=== PATIENT | female | born 1990 | race Caucasian/White ===

== ENCOUNTER → 2017-12-27 14:21 | Outpatient (CLI) | payer OTHER, SELFPAY ==
[2017-12-27 17:11] LABS: Urine N gonorrhoeae NOT DETECTED
[2017-12-27 17:24] LABS: Urine Chlamydia NOT DETECTED
== END ==
PROVIDERS: PCP Physician Assistant; Visit Provider Specialist
DX: Z34.81 Encounter for supervision of other normal pregnancy, first trimester (principal); Z3A.13 13 weeks gestation of pregnancy
CPT/HCPCS: 87491; 87591

== ENCOUNTER 2018-01-02 15:59 | Emergency (ER) | payer OTHER, SELFPAY ==
[2018-01-02 16:41] VITALS: BP 105/75; PULSE 90; RESP 16; TEMP 37; O2SAT 99; BMI 19.0
--- NOTE | 2018-01-02 17:19 | ED.NAVMDI ---
HPI - Nausea/Vomiting/Diarrhea <JAN Sainz - Last Filed: 01/02/18 22:57> General Chief complaint: Nausea/Vomiting/Diarrhea Stated complaint: VOMITING TODAY, 14 WKS Time Seen by Provider: 01/02/18 17:19 History of Present Illness HPI Narrative: 27-year-old female currently 14 weeks 1 here for nausea vomiting that started earlier today. She states she has had multiple episodes having nausea vomiting during this . She states that she is prescribed Zofran to help with this and states that did not help her today. Decreased p.o. intake due to the nausea vomiting. Multiple episodes of vomiting today. She denies any abdominal pain. She denies any urinary symptoms. No fevers no chills. She denies any vaginal discharge or bleeding. No other concerns or complaints. MD complaint: vomiting Related Data Home Medications Medication Instructions Recorded Confirmed Lactobacillus acidophilus #0 10/13/17 lysine #0 10/13/17 omega 1-vvt-ubi-fish oil [Fish Oil] #0 10/13/17 Previous Rx's Medication Instructions Recorded valacyclovir [Valtrex] 2 tab PO BID #4 tab 10/13/17 ondansetron 4 mg disintegrating 4 mg PO Q6H PRN #30 tab 12/07/17 tablet Allergies Allergy/AdvReac Type Severity Reaction Status Date / Time No Known Allergies Allergy Verified 01/02/18 17:49 Review of Systems <JAN Sainz - Last Filed: 01/02/18 22:57> Constitutional Denies chills, Denies fever(s), Denies lethargy and Denies weakness Eyes Denies change in vision, Denies eye discharge, Denies irritation and Denies loss of vision ENT Ears, Nose, Mouth, and Throat: Denies change in voice, Denies neck pain and Denies sore throat Cardiovascular Denies chest pain, Denies irregular heart rhythm, Denies lightheadedness, Denies palpitations, Denies dyspnea, Denies dyspnea on exertion and Denies orthopnea Respiratory Denies cough, Denies dyspnea, Denies dyspnea on exertion and Denies wheezing Gastrointestinal Gastrointestinal: Reports vomiting Genitourinary Denies hematuria, Denies flank pain, Denies urinary incontinence and Denies urinary urgency Musculoskeletal Denies neck pain Integumentary/Breasts Denies pruritus, Denies erythema, Denies rash and Denies wounds Neurologic Denies confusion, Denies loss of vision and Denies weakness Psychiatric Denies anxiety, Denies confusion, Denies depression, Denies homicidal ideation and Denies suicidal ideation Endocrine Denies palpitations Hematologic/Lymphatic Denies easy bruising Allergic/Immunologic Denies wheezing Exam <JAN Sainz - Last Filed: 01/02/18 22:57> Initial Vital Signs Initial Vital Signs: Vital Signs Temperature 98.6 F 01/02/18 16:41 Pulse Rate 90 01/02/18 16:41 Respiratory Rate 16 01/02/18 16:41 Blood Pressure 105/75 01/02/18 16:41 Pulse Oximetry 99 01/02/18 16:41 Const General: cooperative and well developed Nutritional Appearance: well nourished Orientation: alert, awake, oriented x3 and not confused HENMT Mouth: oral mucosae normal and moist mucous membranes Eyes General: appearance normal, both eyes and all related structures Eyelids: eyelids normal Conjunctivae: conjunctivae normal Sclera: sclerae normal Pupils: PERRL EOM: EOM intact bilaterally Resp Effort & Inspection: normal respiratory effort, able to speak in complete sentences, no respiratory distress and no use of accessory muscles Auscultation: clear to auscultation bilaterally, no rales, no rhonchi and no wheezes Cardio Rate: regular rate Rhythm: regular rhythm Heart Sounds: no click, no gallops, no murmurs and no rubs GI Inspection: non-distended Palpation: soft, no hepatosplenomegaly, No guarding, No pulsatile mass and No tender Auscultation: normal bowel sounds General: No CVA tenderness Skin General: no rashes or lesions noted, No jaundice and No petechiae Extrem General: full ROM, no clubbing, cyanosis or edema, no pedal edema and no calf tenderness <Eros Smith MD - Last Filed: 01/03/18 02:12> Initial Vital Signs Initial Vital Signs: Vital Signs Temperature 98.6 F 01/02/18 16:41 Pulse Rate 90 01/02/18 16:41 Respiratory Rate 16 01/02/18 16:41 Blood Pressure 105/75 01/02/18 16:41 Pulse Oximetry 99 01/02/18 16:41 Course <JAN Sainz - Last Filed: 01/02/18 22:57> Orders Ordered: Discontinued Medications Sodium Chloride (Normal Saline 0.9%) 1,000 mls @ 1,000 mls/hr IV BOLUS ONE Stop: 01/02/18 18:33 Last Infusion: 01/02/18 19:04 Dose: 0 mls/hr Admin: 01/02/18 17:42 Dose: 1,000 mls/hr Prochlorperazine (Compazine) 10 mg IV NOW ONE Stop: 01/02/18 17:35 Last Admin: 01/02/18 17:42 Dose: 10 mg Vital Signs - 8 hr 01/02/18 19:45 Pulse Rate 85 Respiratory Rate 14 Blood Pressure 105/70 Pulse Oximetry 99 <Eros Smith MD - Last Filed: 01/03/18 02:12> Orders Ordered: Discontinued Medications Sodium Chloride (Normal Saline 0.9%) 1,000 mls @ 1,000 mls/hr IV BOLUS ONE Stop: 01/02/18 18:33 Last Infusion: 01/02/18 19:04 Dose: 0 mls/hr Admin: 01/02/18 17:42 Dose: 1,000 mls/hr Prochlorperazine (Compazine) 10 mg IV NOW ONE Stop: 01/02/18 17:35 Last Admin: 01/02/18 17:42 Dose: 10 mg Vital Signs - 8 hr 01/02/18 19:45 Pulse Rate 85 Respiratory Rate 14 Blood Pressure 105/70 Pulse Oximetry 99 MDM - Nausea/Vomiting/Diarrhea <JAN Sainz - Last Filed: 01/02/18 22:57> Lab Data Result diagrams: 01/02/18 17:07 01/02/18 17:07 Lab Results 01/02/18 01/02/18 Range/Units 17:07 17:07 WBC 9.3 (4.5-11.0) X10^3/uL RBC 4.07 (4.0-5.2) X10^6/uL Hgb 12.7 (12.0-16.0) g/dL Hct 36.0 (36-46) % MCV 88.6 (80-100) fL MCH 31.2 (26-34) PG MCHC 35.2 (30-36) % RDW 12.8 (11.6-14.8) % Plt Count 193 (150-400) X10^3/uL Neut % (Auto) 79.1 H (50-75) % Lymph % (Auto) 15.2 L (25-40) % Clarke % (Auto) 5.2 (3-14) % Eos % (Auto) 0.2 L (2-4) % Baso % (Auto) 0.3 (0-2) % Neut # (Auto) 7300 H (4217-1328) /uL Sodium 138 (137-145) mmol/L Potassium 4.0 (3.4-5.1) mmol/L Chloride 103 (98-107) mmol/L Carbon Dioxide 26 (22-32) mmol/L BUN 9 (7-17) mg/dL Creatinine 0.50 L (0.52-1.04) mg/dL Estimated GFR > 60.0 (>60) mL/min BUN/Creatinine Ratio 18.0 (6-22) Glucose 84 (70-100) mg/dL Calcium 9.4 (8.4-10.2) mg/dL Total Bilirubin 0.4 (0.2-1.3) mg/dL AST 26 (14-36) IU/L ALT 25 (9-52) IU/L Alkaline Phosphatase 59 (38-126) U/L Total Protein 7.9 (6.3-8.2) g/dL Albumin 4.2 (3.5-5.0) g/dL Globulin 3.7 (1.7-4.1) g/dL Albumin/Globulin Ratio 1.1 (1.0-2.8) MDM Narrative Medical decision making narrative: CBC and Chem panel were obtained were unremarkable. Patient was given fluids and Compazine in the emergency room which patient states felt much better afterwards and desires to go home. Urine POC was negative for urinary tract infection. Will have patient continue using Zofran as prescribed for her nausea vomiting. Plenty of fluids. Slowly advance diet as tolerated. Follow up with OBGYN in the next couple days for re-evaluation. For any worsening symptoms return to the emergency room. <Eros Smith MD - Last Filed: 01/03/18 02:12> Lab Data Lab Results 01/02/18 01/02/18 Range/Units 17:07 17:07 WBC 9.3 (4.5-11.0) X10^3/uL RBC 4.07 (4.0-5.2) X10^6/uL Hgb 12.7 (12.0-16.0) g/dL Hct 36.0 (36-46) % MCV 88.6 (80-100) fL MCH 31.2 (26-34) PG MCHC 35.2 (30-36) % RDW 12.8 (11.6-14.8) % Plt Count 193 (150-400) X10^3/uL Neut % (Auto) 79.1 H (50-75) % Lymph % (Auto) 15.2 L (25-40) % Clarke % (Auto) 5.2 (3-14) % Eos % (Auto) 0.2 L (2-4) % Baso % (Auto) 0.3 (0-2) % Neut # (Auto) 7300 H (5450-8440) /uL Sodium 138 (137-145) mmol/L Potassium 4.0 (3.4-5.1) mmol/L Chloride 103 (98-107) mmol/L Carbon Dioxide 26 (22-32) mmol/L BUN 9 (7-17) mg/dL Creatinine 0.50 L (0.52-1.04) mg/dL Estimated GFR > 60.0 (>60) mL/min BUN/Creatinine Ratio 18.0 (6-22) Glucose 84 (70-100) mg/dL Calcium 9.4 (8.4-10.2) mg/dL Total Bilirubin 0.4 (0.2-1.3) mg/dL AST 26 (14-36) IU/L ALT 25 (9-52) IU/L Alkaline Phosphatase 59 (38-126) U/L Total Protein 7.9 (6.3-8.2) g/dL Albumin 4.2 (3.5-5.0) g/dL Globulin 3.7 (1.7-4.1) g/dL Albumin/Globulin Ratio 1.1 (1.0-2.8) Discharge Plan Departure Patient Disposition: Home, Self-Care Clinical Impression: Nausea and vomiting during Discharge Date/Time: 01/02/18 19:45 Interventions: ED Discharge Assessment Last Done: 01/02/18 19:45 Instructions: DI for Hyperemesis Gravidarum Activity Restrictions/Additional Instructions: Laboratory results were unremarkable today. Signs and symptoms presents as nausea vomiting secondary to the . Continue using Zofran as prescribed. Plenty of fluids. Slowly advance diet as tolerated. Follow up with OBGYN in the next couple of days for re-evaluation. For any worsening symptoms return to the emergency room Prescriptions: No Action lysine 500 MG tablet Qty: 0 RF: 0 Lactobacillus acidophilus 1 EACH capsule Qty: 0 RF: 0 omega 1-foy-xad-fish oil [Fish Oil] 1,000 MG capsule Qty: 0 RF: 0 valacyclovir [Valtrex] 1,000 MG tablet 2 tab PO BID Qty: 4 RF: 2 ondansetron [Zofran ODT] 4 mg tablet,disintegrating 4 mg PO Q6H PRN (Reason: nausea and vomiting) Qty: 30 RF: 2 Referrals: Zara Casarez PA-C [Primary Care Provider] -
--- NOTE | 2018-01-02 17:30 | PC.NURSE ---
pt reports 14 weeks preg, 1 week of nausea/vomiting, unable to keep fluids down, emesis x10 today, denies abd pain/bleeding/diarrhea/fever/dysuria or other sx, FHT 140 at time of exam completed by Flavia VENTURA
[2018-01-02 17:42] VITALS: BP 105/75; PULSE 90
[2018-01-02] MEDS: SODIUM CHLORIDE 0.9% 1,000 ML 1000 ML IV (17:42)
[2018-01-02] MEDS: PROCHLORPERAZINE 10 MG/2 ML VIAL IV (17:42)
[2018-01-02 17:44] LABS: Add Manual Diff / Slide Review NO; Basophils Percent Auto 0.3 % (0-2); Eosinophils Percent Auto 0.2 % (2-4); Hemoglobin 12.7 g/dL (12.0-16.0); Lymphocytes Percent Auto 15.2 % (25-40); Mean Corpuscular HGB Conc 35.2 % (30-36); Mean Corpuscular Hemoglobin 31.2 PG (26-34); Mean Corpuscular Volume 88.6 fL (80-100); Monocytes Percent Auto 5.2 % (3-14); Neutrophils Absolute Auto 7300 /uL (3000-5900); Neutrophils Percent Auto 79.1 % (50-75); Platelet Count 193 X10^3/uL (150-400); Red Blood Cell Count 4.07 X10^6/uL (4.0-5.2); Red Cell Distribution Width 12.8 % (11.6-14.8); White Blood Cell Count 9.3 X10^3/uL (4.5-11.0)
[2018-01-02 17:56] VITALS: BP 109/72; PULSE 101; RESP 16; TEMP 36.7; O2SAT 100
[2018-01-02 18:06] LABS: Alanine Aminotransferase 25 IU/L (9-52); Albumin 4.2 g/dL (3.5-5.0); Albumin Globulin Ratio 1.1 (1.0-2.8); Alkaline Phosphatase 59 U/L (38-126); Aspartate Aminotransferase 26 IU/L (14-36); Bilirubin Total 0.4 mg/dL (0.2-1.3); Blood Urea Nitrogen 9 mg/dL (7-17); Calcium 9.4 mg/dL (8.4-10.2); Carbon Dioxide 26 mmol/L (22-32); Chloride 103 mmol/L (98-107); Estimated Glomerular Filt Rate > 60.0 mL/min (>60); Globulin 3.7 g/dL (1.7-4.1); Glucose 84 mg/dL (70-100); HEMOLYSIS < 15 (0-50); Sodium 138 mmol/L (137-145); Total Protein 7.9 g/dL (6.3-8.2)
[2018-01-02 19:45] VITALS: BP 105/70; PULSE 85; RESP 14; O2SAT 99
== END 2018-01-02 19:45 | disposition home or self-care (01) ==
PROVIDERS: Emergency Provider Nurse Practitioner Family; PCP Physician Assistant
DX: O21.9 Vomiting of pregnancy, unspecified (principal)
CPT/HCPCS: 80053; 81003; 85025; 96361; 96374; 99283; 99284; J0780

== ENCOUNTER → 2018-01-25 11:15 | Outpatient (CLI) | payer OTHER, SELFPAY ==
[2018-01-31 13:46] LABS: AFP, Serum 36.6 ng/mL; Cigarette Smoker N; Donated Egg NOT GIVEN; Donor Egg Age NOT GIVEN; Estriol, Free 0.86 ng/mL; Maternal Ethnicity Caucasian; Maternal Weight 115 lbs; Number of Fetuses 1; Previous Pregnancy Down Syndro NOT GIVEN; hCG, Serum 95.7 IU/mL
[2018-02-01 14:39] LABS: Inhibin A, Dimeric 318 pg/mL
[2018-03-02 15:58] LABS: hCG, MoM 2.33
== END ==
PROVIDERS: PCP Physician Assistant; Visit Provider Specialist
DX: Z3A.17 17 weeks gestation of pregnancy (principal)
CPT/HCPCS: 36415; 82105; 82677; 84702; 86336

== ENCOUNTER → 2018-02-13 09:50 | Outpatient (CLI) | payer OTHER, SELFPAY ==
--- NOTE | 2018-02-13 09:51 | DI.US.S_ITS ---
PROCEDURE: US OB >= 14 WEEKS FETUS INDICATIONS: 20 WEEK ANATOMY SCREEN OUTSIDE/PRIOR DATING DATA: Last menstrual period (LMP): 09/24/2017. LMP-based estimated date of delivery (CHRISTOPHER): 07/01/2018. First dating scan (date and location): 11/10/2017. Estimated date of delivery (CHRISTOPHER) from first dating scan: 07/08/2018. TECHNIQUE: Real-time scanning was performed of the fetus, with image documentation and biometric measurements. Endovaginal scanning: Not required COMPARISON: [facility], , OB >= 14 WEEKS FETUS, 01/25/2018, 10:52. FINDINGS: General: A single living intrauterine gestation is present. Presentation: Vertex. Placenta: Placental position is anterior, without previa. Amniotic fluid index: 13.0 cm, normal range is 5-24 cm. heart rate: 143 beats per minute. Maternal cervical canal: 3.5 cm long. Normal lower limit is 2.5 cm. biometrics: Biparietal diameter: 19 weeks 2 days Head circumference: 19 weeks 3 days Abdominal circumference: 19 weeks 3 days Femur length: 18 weeks 6 days Estimated gestational age from initial scan: 19 weeks 2 days Composite gestational age from present scan: 19 weeks 2 days, normal growth Estimated weight and percentile: 279 g at the 40th percentile Measurement variability for biometric dating: +/- 7 days from 14 weeks to 15 weeks 6 days gestation, +/- 10 days from 16 weeks to 21 weeks 6 days gestation, +/- 2 weeks from 22 weeks to 27 weeks 6 days gestation, +/- 3 weeks for 28 weeks gestation or later. weight reference: 4500 g or EFW >90/95% is considered macrosomia or large for gestational age. EFW <10% is small for gestational age. EFW 5% or less is considered intra-uterine growth restriction. Anatomic survey: Neuro: Ventricles are non-dilated at less than 10 mm. Cisterna magna is normal at 3-11 mm. Cerebellum is normal in size and morphology. Nuchal skin fold: Normal at less than 6 mm between 14-21 weeks gestational age. Face: Nose and lips, facial profile are normal. Spine: No evidence for spina bifida. Heart: 4-chambered heart is present, with normal ventricular outflow tracts. Diaphragm: Diaphragm is intact. Stomach: Left-sided stomach is present. Kidneys: No hydronephrosis. Normal is less than 5 mm in 2nd trimester, less than 7 mm in 3rd trimester. Cord: 3-vessel cord has orthotopic insertion. Bladder: Normal in size. Extremities: All 4 extremities identified. IMPRESSION: Single, live intrauterine gestation in Vertex lie showing composite gestational age of 19 weeks 2 days, normal growth and normal anatomy. Dictated by: Terry Mayfield M.D. on 02/13/2018 at 10:59 Approved by: Terry Mayfield M.D. on 02/13/2018 at 11:01
== END ==
PROVIDERS: PCP Physician Assistant; Visit Provider Specialist
DX: Z36.89 Encounter for other specified antenatal screening (principal); Z3A.19 19 weeks gestation of pregnancy
CPT/HCPCS: 76811

== ENCOUNTER 2018-03-09 09:09 | Observation (INO) | payer OTHER, SELFPAY ==
--- NOTE | 2018-03-09 10:51 | PM.OBTRLD ---
Visit Information Visit Information Date of evaluation: 03/09/18 Primary OB Provider: Esperanza Benitez Comments/Additional reasons for admission: r/o rupture membranes, PTL Vital Signs Vital Signs: Blood pressure 94/62, pulse of 96 PFSH Family History Grandfather Diabetes mellitus Heart disease Skin cancer Grandmother Mental health problem Stroke Grandfather Pancreatic cancer Grandmother Breast cancer Social History Smoking Status: Never smoker Exam Narrative Exam Narrative: heart tones reassuring for 22 weeks. No abdominal pain. No contractions seen on monitor. No vaginal bleeding or discharge. Evaluation Evaluation Contraction Frequency (minutes): 0 Diagnosis, Plan/Disposition Final Diagnosis (1) Vaginal discharge: Current Visit: No Status: Acute (2) 22 weeks gestation of : Current Visit: No Status: Acute (3) Back pain: Current Visit: No Status: Acute Plan/Disposition Plan: Patient reassured that there is no evidence of labor or rupture membranes. She was discharged home to keep her routine OB appointment
== END 2018-03-09 10:48 | disposition home or self-care (01) ==
PROVIDERS: Admitting Provider Specialist; PCP Physician Assistant; Visit Provider Specialist
DX: Z34.92 Encounter for supervision of normal pregnancy, unspecified, second trimester (principal); M54.9 Dorsalgia, unspecified; N89.8 Other specified noninflammatory disorders of vagina; Z3A.22 22 weeks gestation of pregnancy
CPT/HCPCS: 59025; 84112; G0378; G0379

== ENCOUNTER → 2018-03-22 09:18 | Outpatient (CLI) | payer OTHER, SELFPAY ==
[2018-03-22 11:16] LABS: Hematocrit 32.6 % (36-46); Hemoglobin 11.4 g/dL (12.0-16.0)
[2018-03-22 11:33] LABS: GTT (PREG) 1 Hour PP 50gm Dose 72 mg/dL (76-139)
== END ==
PROVIDERS: PCP Physician Assistant; Visit Provider Specialist
DX: Z34.02 Encounter for supervision of normal first pregnancy, second trimester (principal); Z3A.24 24 weeks gestation of pregnancy
CPT/HCPCS: 36415; 82950; 85014; 85018

== ENCOUNTER → 2018-06-15 10:20 | Outpatient (CLI) | payer OTHER, SELFPAY ==
[2018-06-16 10:47] LABS: Strep Grp B PCR NEG for Grp B Strep
== END ==
PROVIDERS: PCP Physician Assistant; Visit Provider Specialist
DX: Z3A.36 36 weeks gestation of pregnancy (principal)
CPT/HCPCS: 87653

== ENCOUNTER 2018-06-20 13:27 | Outpatient (CLI) | payer OTHER, SELFPAY ==
--- NOTE | 2018-06-20 14:06 | PM.OBTRLD ---
Visit Information Visit Information Date of evaluation: 06/20/18 Primary OB Provider: Esperanza Benitez Reason for Evaluation: Yes rupture of membranes Vital Signs Vital Signs: Blood pressure 116/75, pulse of 83 PFSH Family History Grandfather Diabetes mellitus Heart disease Skin cancer Grandmother Mental health problem Stroke Grandfather Pancreatic cancer Grandmother Breast cancer Social History Smoking Status: Never smoker Evaluation Evaluation Baseline heart rate: 130 Variability: Moderate (11-25) monitor accelerations: Present monitor decelerations: Absent Category of Tracing: I Non-invasive Membranes Rupture Test: negative Diagnosis, Plan/Disposition Final Diagnosis (1) 37 weeks gestation of : Current Visit: Yes Status: Acute (2) Vaginal discharge: Current Visit: No Status: Acute Plan/Disposition Plan: Patient is reassured no evidence of rupture membranes. Precautions will be reviewed with patient. Follow-up at her routine OB appointment.
== END 2018-06-20 14:30 | disposition home or self-care (01) ==
LOC: LABOR 14:00 → OB 06-21 08:26
PROVIDERS: PCP Physician Assistant; Visit Provider Specialist
DX: Z34.83 Encounter for supervision of other normal pregnancy, third trimester (principal); Z3A.37 37 weeks gestation of pregnancy; N89.8 Other specified noninflammatory disorders of vagina
CPT/HCPCS: 59025; 84112; G0378; G0379

== ENCOUNTER 2018-06-27 13:00 | Outpatient (RCR) | payer OTHER, SELFPAY ==
--- NOTE | 2018-06-14 14:19 | PT.OIE ---
Current Diagnoses Dorsalgia, unspecified (06/13/18) Past Medical History (Last Reviewed 01/02/18 @ 19:37 by JAN Sainz) Acne (Inactive ~2004) History of chickenpox (Inactive ~1992) Ovarian cyst (Inactive ~2006) Painful menstrual periods (Inactive ~2004) Past Surgical History (Last Reviewed 01/02/18 @ 19:37 by JAN Sainz) Hx of breast augmentation (Inactive) Provider Visit Care Team Role Provider Type Zara Casarez PA-C Primary Care Provider Advanced Roving Carrier Specialty: Medical Address: [address] [place] [address] Email: [email or web address] Esperanza Benitez MD Attending Provider Physician Specialty: [employer] Address: [address] [place] [address], [id number] Email: [email or web address] Physical Therapy Initial Evaluation PT-OP-A Visit Information Start: 06/14/18 11:49 Freq: Status: Active Protocol: Document 06/13/18 13:00 [facility] (Rec: 06/14/18 12:06 [facility] [email or web address]) Out-Patient Physical Therapy Visit Information Visit Information Visit Type Initial Evaluation Visit Start Time 13:00 Visit Stop Time 14:00 Total Visit Minutes 60 Visit Number 1 Number of TURKEY PINNER Visits 0 Evaluation Information Evaluation Date 06/13/18 PT-OP-B Current Condition Start: 06/14/18 11:49 Freq: Status: Active Protocol: Document 06/13/18 13:00 [facility] (Rec: 06/14/18 12:06 [facility] [email or web address]) Current Condition History of Current Condition Onset Date 1 month ago Current Complaints mid and low back pain rated 5- 7/10 History of Current Condition Lani is a 27 year old female who is 36 weeks with her first child. She has been experiencing a onset of both low back pain and right greater than left thoracic pain that began 1 month ago. She also reports she was very sick the first trimester of her and wasn't able to do her regular level of activity. 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 and is limiting her photography sessions PT-OP-C Subjective Start: 06/14/18 11:49 Freq: Status: Active Protocol: Document 06/13/18 13:59 [facility] (Rec: 06/14/18 14:18 [facility] [email or web address]) OP-PT Pain Assessment Pain Assessment Grid Paper Pain Assessment Grid Completed Yes Location right sided thoracic spine and bilateral low back Intensity 7 Scale Used Numeric (1 - 10) PT-OP-F Manual Assessment Start: 06/14/18 11:49 Freq: Status: Active Protocol: Document 06/13/18 13:59 [facility] (Rec: 06/14/18 14:18 [facility] [email or web address]) Manual Assessments Soft Tissue Assessment Soft Tissue Mobility Assessment paraspinal muscular tightness lumbar paraspinals and thoracic region, scapula paraspinals R>L Joint Mobility Assessment Joint Mobility Assessment hypomobility of T4-6 PT-OP-J Posture/Palpation/Skin Start: 06/14/18 11:49 Freq: Status: Active Protocol: Document 06/14/18 14:18 [facility] (Rec: 06/14/18 14:19 [facility] [email or web address]) Palpation Assessment Location Two Palpation Location lumbar paraspinals Palpation Findings Soft Tissue Tightness Spasm Muscle Guarding Tenderness right T4-6 Palpation Location thoracic spine T4-6 spinus process and transverse process Palpation Findings Spasm Muscle Guarding Trigger Point PT-OP-K Range of Motion Start: 06/14/18 11:49 Freq: Status: Active Protocol: Document 06/13/18 13:59 [facility] (Rec: 06/14/18 14:18 [facility] [email or web address]) Lumbar Spine Range of Motion Lumbar Spine Active Testing Position Standing Flexion 70 Extension 10 Rotation Left 80 Rotation Right 80 Lateral Flexion Left 50 Lateral Flexion Right 50 Comments limited in lumbar flexion due to parapspinal tightness, flexion feels good to Kelsay but extension is painful PT-OP-Q Treatments Start: 06/14/18 11:49 Freq: Status: Active Protocol: Document 06/13/18 13:59 [facility] (Rec: 06/14/18 14:18 [facility] [email or web address]) Therapeutic Exercises Other Exercises 3 Other Exercise Name 1/2 foam roll stretch horizontally and vertically Comments pt to use yoga mat for home use 2 Other Exercise Name child's pose Reps/Minutes hold 1-2 minutes 1 Other Exercise Name quadruped pelvic tilts, sidebends, thoracic rotation Reps/Minutes x 10 each Manual Therapy Treatment Soft Tissue Mobilization 1 Body Location prone on pillow release of the lumbar paraspinals Body Position prone on pillow Comments good tolerance for pillow and for STM PT-OP-T Assessment and Plan Start: 06/14/18 11:49 Freq: Status: Active Protocol: Document 06/13/18 13:59 [facility] (Rec: 06/14/18 14:18 [facility] [email or web address]) Physical Therapy Assessment Rehab Potential Rehabilitation Potential Excellent Evaluation Complexity Number of Personal Factors/Comorbidities 0 Number of Body Systems Impaired 1-2 Clinical Presentation at Evaluation Stable Impairments Impairments Activity Tolerance Pain Posture ROM Soft Tissue Mobility Other Impairments related stretch weakness of the lower abdominal muscles with tightness of the paraspinals Goals Three Impairment thoracic and lumbar pain rated 5-7/10 Short Term Goal (STG) Basilio is educated in stretches and exercises for to help reduce pain levels from 5-7/10 to 1-3/10 for the remainder of her STG Duration 5 weeks Two Impairment hypomobility of the upper thoracic spine Short Term Goal (STG) improve mobility of T4-6 to assist with thoracic extension and to reduce pain STG Duration 5 weeks One Impairment muscle spasm and tightness of the lumbar paraspinals Short Term Goal (STG) reduce muscle spasm and tightness of the lumbar paraspinals with manual therapy techniques and stretching program STG Duration 5 weeks Assessment Summary Assessment Basilio presents to physical therapy with signs and symptoms of lumbar spasm and thoracic R>L hypomobility. She is currently 36 weeks with no history of LBP. 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 She is is excellent physical shape and is doing primarily yoga and water exercises currently. She presents with over dominance of the lumbar paraspinal musculature and this combined with stretch weakness of the lower abdominal wall is placing strain on her low back. In her thoracic spine she is hypomobile from T4-6. I instructed her today in chest opening exercises to help improve thoracic extension and lumbar flexion exercises. She was educated on avoidance of lumbar extension at this time. Soft tissue work was performed over the lumbar paraspinals and Basilio tolerated this well. She is a good candidate for PT during the remainder of her to help reduce her pain levels. Physical Therapy Plan Frequency and Duration Frequency of Treatment 2x/Week Duration of Treatment 8 weeks Plan of Care Start Date 06/13/18 Plan of Care End Date 08/08/18 Therapeutic Interventions Therapeutic Interventions Home Exercise Program Joint Mobilizations Manual Therapy Neuromuscular Re-education Self-Care/Home Management Soft Tissue Mobilization Therapeutic Exercises
--- NOTE | 2018-06-14 14:21 | PT.OPPOC ---
Current Diagnoses Dorsalgia, unspecified (06/13/18) Provider Visit Care Team Role Provider Type Zara Casarez PA-C Primary Care Provider Advanced Knock Out Hand Specialty: Medical Address: [facility] [place], [address] Email: [email or web address] Esperanza Benitez MD Attending Provider Physician Specialty: [employer] ATTENDANT Address: [address] [place] [address], [address] Email: [email or web address] Plan Of Care PT-OP-T Assessment and Plan Start: 06/14/18 11:49 Freq: Status: Active Protocol: Document 06/13/18 13:59 [facility] (Rec: 06/14/18 14:18 [facility] [email or web address]) Physical Therapy Assessment Rehab Potential Rehabilitation Potential Excellent Evaluation Complexity Number of Personal Factors/Comorbidities 0 Number of Body Systems Impaired 1-2 Clinical Presentation at Evaluation Stable Impairments Impairments Activity Tolerance Pain Posture ROM Soft Tissue Mobility Other Impairments related stretch weakness of the lower abdominal muscles with tightness of the paraspinals Goals Three Impairment thoracic and lumbar pain rated 5-7/10 Short Term Goal (STG) Basilio is educated in stretches and exercises for to help reduce pain levels from 5-7/10 to 1-3/10 for the remainder of her STG Duration 5 weeks Two Impairment hypomobility of the upper thoracic spine Short Term Goal (STG) improve mobility of T4-6 to assist with thoracic extension and to reduce pain STG Duration 5 weeks One Impairment muscle spasm and tightness of the lumbar paraspinals Short Term Goal (STG) reduce muscle spasm and tightness of the lumbar paraspinals with manual therapy techniques and stretching program STG Duration 5 weeks Assessment Summary Assessment Basilio presents to physical therapy with signs and symptoms of lumbar spasm and thoracic R>L hypomobility. She is currently 36 weeks with no history of LBP. 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 She is is excellent physical shape and is doing primarily yoga and water exercises currently. She presents with over dominance of the lumbar paraspinal musculature and this combined with stretch weakness of the lower abdominal wall is placing strain on her low back. In her thoracic spine she is hypomobile from T4-6. I instructed her today in chest opening exercises to help improve thoracic extension and lumbar flexion exercises. She was educated on avoidance of lumbar extension at this time. Soft tissue work was performed over the lumbar paraspinals and Basilio tolerated this well. She is a good candidate for PT during the remainder of her to help reduce her pain levels. Physical Therapy Plan Frequency and Duration Frequency of Treatment 2x/Week Duration of Treatment 8 weeks Plan of Care Start Date 06/13/18 Plan of Care End Date 08/08/18 Therapeutic Interventions Therapeutic Interventions Home Exercise Program Joint Mobilizations Manual Therapy Neuromuscular Re-education Self-Care/Home Management Soft Tissue Mobilization Therapeutic Exercises Plan of Care Dates Plan of Care Start Date 06/13/18 Plan of Care End Date 08/08/18 Please Sign and Return: I have reviewed this Plan of Care and certify that the skilled therapy services above are required to meet the patient?s needs. Physician Signature Date Printed Name and Credentials Clinical Instructor Signature Printed Name and Credentials
--- NOTE | 2018-06-20 14:08 | PT.OTN ---
Current Diagnoses Dorsalgia, unspecified (06/20/18) Physical Therapy Treatment Note PT-OP-A Visit Information Start: 06/14/18 11:49 Freq: Status: Active Protocol: Document 06/20/18 14:02 [facility] (Rec: 06/20/18 14:08 [facility] [email or web address]) Out-Patient Physical Therapy Visit Information Visit Information Visit Type Other Visit Note Basilio reported at the beginning of treatment that she was leaking amniotic fluid for the past 2 hours. I had her call the nurse and they wanted her to come in to labor and delivery. She received STM for approximatly 5 minutes while she was on hold with the nurse and then they wanted her to come to labor and delivery so tx was stopped. No charge for today's visit PT-OP-B Current Condition Start: 06/14/18 11:49 Freq: Status: Active Protocol: Document 06/13/18 13:00 [facility] (Rec: 06/14/18 12:06 [facility] [email or web address]) Current Condition History of Current Condition Onset Date 1 month ago Current Complaints mid and low back pain rated 5- 7/10 History of Current Condition Lani is a 27 year old female who is 36 weeks with her first child. She has been experiencing a onset of both low back pain and right greater than left thoracic pain that began 1 month ago. She also reports she was very sick the first trimester of her and wasn't able to do her regular level of activitiy. 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 PT-OP-C Subjective Start: 06/14/18 11:49 Freq: Status: Active Protocol: Document 06/13/18 13:59 [facility] (Rec: 06/14/18 14:18 [facility] [email or web address]) OP-PT Pain Assessment Pain Assessment Grid Paper Pain Assessment Grid Completed Yes Location right sided thoracic spine and bilateral low back Intensity 7 Scale Used Numeric (1 - 10) PT-OP-F Manual Assessment Start: 06/14/18 11:49 Freq: Status: Active Protocol: Document 06/13/18 13:59 [facility] (Rec: 06/14/18 14:18 [facility] [email or web address]) Manual Assessments Soft Tissue Assessment Soft Tissue Mobility Assessment paraspinal muscular tightness lumbar paraspinals and thoracic region, scapula paraspinals R>L Joint Mobility Assessment Joint Mobility Assessment hypomobility of T4-6 PT-OP-J Posture/Palpation/Skin Start: 06/14/18 11:49 Freq: Status: Active Protocol: Document 06/14/18 14:18 [facility] (Rec: 06/14/18 14:19 [facility] [email or web address]) Palpation Assessment Location Two Palpation Location lumbar paraspinals Palpation Findings Soft Tissue Tightness Spasm Muscle Guarding Tenderness right T4-6 Palpation Location thoracic spine T4-6 spinus process and transverse process Palpation Findings Spasm Muscle Guarding Trigger Point PT-OP-K Range of Motion Start: 06/14/18 11:49 Freq: Status: Active Protocol: Document 06/13/18 13:59 [facility] (Rec: 06/14/18 14:18 [facility] [email or web address]) Lumbar Spine Range of Motion Lumbar Spine Active Testing Position Standing Flexion 70 Extension 10 Rotation Left 80 Rotation Right 80 Lateral Flexion Left 50 Lateral Flexion Right 50 Comments limited in lumbar flexion due to parapspinal tightness, flexion feels good to Kelsay but extension is painful PT-OP-Q Treatments Start: 06/14/18 11:49 Freq: Status: Active Protocol: Document 06/13/18 13:59 [facility] (Rec: 06/14/18 14:18 [facility] [email or web address]) Therapeutic Exercises Other Exercises 3 Other Exercise Name 1/2 foam roll stretch horizontally and vertically Comments pt to use yoga mat for home use 2 Other Exercise Name sindi pose Reps/Minutes hold 1-2 minutes 1 Other Exercise Name quadruped pelvic tilts, sidebends, thoracic rotation Reps/Minutes x 10 each Manual Therapy Treatment Soft Tissue Mobilization 1 Body Location prone on pillow release of the lumbar paraspinals Body Position prone on pillow Comments good tolerance for pillow and for STM PT-OP-T Assessment and Plan Start: 06/14/18 11:49 Freq: Status: Active Protocol: Document 06/13/18 13:59 [facility] (Rec: 06/14/18 14:18 [facility] [email or web address]) Physical Therapy Assessment Rehab Potential Rehabilitation Potential Excellent Evaluation Complexity Number of Personal Factors/Comorbidities 0 Number of Body Systems Impaired 1-2 Clinical Presentation at Evaluation Stable Impairments Impairments Activity Tolerance Pain Posture ROM Soft Tissue Mobility Other Impairments related stretch weakness of the lower abdominal muscles with tightness of the paraspinals Goals Three Impairment thoracic and lumbar pain rated 5-7/10 Short Term Goal (STG) Basilio is educated in stretches and exercises for to help reduce pain levels from 5-7/10 to 1-3/10 for the remainder of her STG Duration 5 weeks Two Impairment hypomobility of the upper thoracic spine Short Term Goal (STG) improve mobility of T4-6 to assist with thoracic extension and to reduce pain STG Duration 5 weeks One Impairment muscle spasm and tightness of the lumbar paraspinals Short Term Goal (STG) reduce muscle spasm and tightness of the lumbar paraspinals with manual therapy techniques and stretching program STG Duration 5 weeks Assessment Summary Assessment Basilio presents to physical therapy with signs and symptoms of lumbar spasm and thoracic R>L hypomobility. She is currently 36 weeks with no history of LBP. 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 She is is excellent physical shape and is doing primarily yoga and water exercises currently. She presents with over dominance of the lumbar paraspinal musculature and this combined with stretch weakness of the lower abdominal wall is placing strain on her low back. In her thoracic spine she is hypomobile from T4-6. I instructed her today in chest opening exercises to help improve thoracic extension and lumbar flexion exercises. She was educated on avoidance of lumbar extension at this time. Soft tissue work was performed over the lumbar paraspinals and Basilio tolerated this well. She is a good candidate for PT during the remainder of her to help reduce her pain levels. Physical Therapy Plan Frequency and Duration Frequency of Treatment 2x/Week Duration of Treatment 8 weeks Plan of Care Start Date 06/13/18 Plan of Care End Date 08/08/18 Therapeutic Interventions Therapeutic Interventions Home Exercise Program Joint Mobilizations Manual Therapy Neuromuscular Re-education Self-Care/Home Management Soft Tissue Mobilization Therapeutic Exercises
--- NOTE | 2018-06-27 14:10 | PT.OTN ---
Current Diagnoses Dorsalgia, unspecified (06/27/18) Physical Therapy Treatment Note PT-OP-A Visit Information Start: 06/14/18 11:49 Freq: Status: Active Protocol: Document 06/27/18 14:04 [facility] (Rec: 06/27/18 14:09 [facility] [email or web address]) Out-Patient Physical Therapy Visit Information Visit Information Visit Type Treatment Note Visit Start Time 13:00 Visit Stop Time 13:45 Total Visit Minutes 45 Visit Number 2 PT-OP-B Current Condition Start: 06/14/18 11:49 Freq: Status: Active Protocol: Document 06/13/18 13:00 [facility] (Rec: 06/14/18 12:06 [facility] [email or web address]) Current Condition History of Current Condition Onset Date 1 month ago Current Complaints mid and low back pain rated 5- 7/10 History of Current Condition Lani is a 27 year old female who is 36 weeks with her first child. She has been experiencing a onset of both low back pain and right greater than left thoracic pain that began 1 month ago. She also reports she was very sick the first trimester of her and wasn't able to do her regular level of activitiy. 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 She has felt tight in her low back this past week . She has been trying the yoga mat rolled up stretch for her mid back PT-OP-F Manual Assessment Start: 06/14/18 11:49 Freq: Status: Active Protocol: Document 06/13/18 13:59 [facility] (Rec: 06/14/18 14:18 [facility] [email or web address]) Manual Assessments Soft Tissue Assessment Soft Tissue Mobility Assessment paraspinal muscular tightness lumbar paraspinals and thoracic region, scapula paraspinals R>L Joint Mobility Assessment Joint Mobility Assessment hypomobility of T4-6 PT-OP-J Posture/Palpation/Skin Start: 06/14/18 11:49 Freq: Status: Active Protocol: Document 06/14/18 14:18 [facility] (Rec: 06/14/18 14:19 [facility] [email or web address]) Palpation Assessment Location Two Palpation Location lumbar paraspinals Palpation Findings Soft Tissue Tightness Spasm Muscle Guarding Tenderness right T4-6 Palpation Location thoracic spine T4-6 spinus process and transverse process Palpation Findings Spasm Muscle Guarding Trigger Point PT-OP-K Range of Motion Start: 06/14/18 11:49 Freq: Status: Active Protocol: Document 06/13/18 13:59 [facility] (Rec: 06/14/18 14:18 [facility] [email or web address]) Lumbar Spine Range of Motion Lumbar Spine Active Testing Position Standing Flexion 70 Extension 10 Rotation Left 80 Rotation Right 80 Lateral Flexion Left 50 Lateral Flexion Right 50 Comments limited in lumbar flexion due to parapspinal tightness, flexion feels good to Kelsay but extension is painful PT-OP-Q Treatments Start: 06/14/18 11:49 Freq: Status: Active Protocol: Document 06/27/18 14:04 [facility] (Rec: 06/27/18 14:09 [facility] [email or web address]) Therapeutic Exercises Other Exercises 4 Other Exercise Name sidebend for left quadratus lumborum 2 Other Exercise Name sindi pose Reps/Minutes hold 1-2 minutes Manual Therapy Treatment Soft Tissue Mobilization 1 Body Location prone on pillow release of the lumbar paraspinals Body Position prone on pillow Comments good tolerance for pillow and for STM Self-Care/Home Management Treatment Education Patient Education Home Exercise Program Other Education stretches to open up the left side of the quadratus lumborum PT-OP-T Assessment and Plan Start: 06/14/18 11:49 Freq: Status: Active Protocol: Document 06/27/18 14:04 [facility] (Rec: 06/27/18 14:09 [facility] [email or web address]) Physical Therapy Assessment Assessment Summary Assessment left greater than right sided QL tightness today and paraspinal tightness B Physical Therapy Plan Frequency and Duration Frequency of Treatment 2x/Week Duration of Treatment 8 weeks Plan of Care Start Date 06/13/18 Plan of Care End Date 08/08/18 Therapeutic Interventions Therapeutic Interventions Home Exercise Program Joint Mobilizations Manual Therapy Neuromuscular Re-education Self-Care/Home Management Soft Tissue Mobilization Therapeutic Exercises Next Visit Focus/Plan Next Note Type Treatment Note Next Visit Plan recheck QL tightness and continue with STM and manual therapy techniques to help reduce LBP
--- NOTE | 2018-08-22 10:35 | PT.OPDS ---
Current Diagnoses Dorsalgia, unspecified (06/27/18) Provider Visit Care Team Role Provider Type Zara Casarez PA-C Primary Care Provider [employer] Team Member Specialty: Medical Address: [facility] [place], [address] Email: [email or web address] Esperanza Benitez MD Attending Provider Physician Specialty: [employer] Address: [address] [place] [address], [id number] Email: [email or web address] Visit Number Visit Number 2 Discharge Summary PT-OP-B Current Condition Start: 06/14/18 11:49 Freq: Status: Active Protocol: Document 06/13/18 13:00 AM[facility] (Rec: 06/14/18 12:06 AMH [email or web address]) Current Condition History of Current Condition Onset Date 1 month ago Current Complaints mid and low back pain rated 5- 7/10 History of Current Condition Lani is a 27 year old female who is 36 weeks with her first child. She has been experiencing a onset of both low back pain and right greater than left thoracic pain that began 1 month ago. She also reports she was very sick the first trimester of her and wasn't able to do her regular level of activitiy. 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 She has felt tight in her low back this past week . She has been trying the yoga mat rolled up stretch for her mid back PT-OP-F Manual Assessment Start: 06/14/18 11:49 Freq: Status: Active Protocol: Document 06/13/18 13:59 AM[facility] (Rec: 06/14/18 14:18 AMH [email or web address]) Manual Assessments Soft Tissue Assessment Soft Tissue Mobility Assessment paraspinal muscular tightness lumbar paraspinals and thoracic region, scapula paraspinals R>L Joint Mobility Assessment Joint Mobility Assessment hypomobility of T4-6 PT-OP-J Posture/Palpation/Skin Start: 06/14/18 11:49 Freq: Status: Active Protocol: Document 06/14/18 14:18 AM[facility] (Rec: 06/14/18 14:19 AMH [email or web address]) Palpation Assessment Location Two Palpation Location lumbar paraspinals Palpation Findings Soft Tissue Tightness Spasm Muscle Guarding Tenderness right T4-6 Palpation Location thoracic spine T4-6 spinus process and transverse process Palpation Findings Spasm Muscle Guarding Trigger Point PT-OP-K Range of Motion Start: 06/14/18 11:49 Freq: Status: Active Protocol: Document 06/13/18 13:59 AMH (Rec: 06/14/18 14:18 AMH [email or web address]) Lumbar Spine Range of Motion Lumbar Spine Active Testing Position Standing Flexion 70 Extension 10 Rotation Left 80 Rotation Right 80 Lateral Flexion Left 50 Lateral Flexion Right 50 Comments limited in lumbar flexion due to parapspinal tightness, flexion feels good to Basilio but extension is painful PT-OP-T Assessment and Plan Start: 06/14/18 11:49 Freq: Status: Active Protocol: Document 08/22/18 10:34 AM[facility] (Rec: 08/22/18 10:35 AMH [email or web address]) Physical Therapy Assessment Assessment Summary Assessment Basilio has had her baby and needed to cx her last few visits. She will be discharged at this time. Physical Therapy Plan Discharge Physical Therapy Discharge Reasons Change in Medical Status
== END 2018-08-29 12:24 ==
LOC: PHYS 13:00
PROVIDERS: PCP Physician Assistant; Visit Provider Specialist
DX: M54.9 Dorsalgia, unspecified (principal)
CPT/HCPCS: 97140; 97161; 97535

== ENCOUNTER 2018-07-03 11:41 | Outpatient (CLI) | payer OTHER, SELFPAY | END 2018-07-03 13:44 | disposition home or self-care (01) | LOC: LABOR 13:35 → OB 07-04 13:14 | PROVIDERS: PCP Physician Assistant; Visit Provider Specialist | DX: Z34.03 Encounter for supervision of normal first pregnancy, third trimester (principal); Z3A.38 38 weeks gestation of pregnancy | CPT/HCPCS: 59025; 59050; 84112; G0378; G0379 ==

== ENCOUNTER 2018-07-11 18:47 | Inpatient (IN) | payer OTHER, SELFPAY ==
[2018-07-11 20:30] VITALS: BP 106/60
[2018-07-11] MEDS: LACTATED RINGERS 1,000 ML 999 ML IV (20:50)
[2018-07-11 20:55] LABS: Add Manual Diff / Slide Review NO; Basophils Percent Auto 0.7 % (0-2); Eosinophils Percent Auto 0.2 % (2-4); Hematocrit 34.2 % (36-46); Hemoglobin 11.5 g/dL (12.0-16.0); Lymphocytes Percent Auto 12.7 % (25-40); Mean Corpuscular HGB Conc 33.5 % (30-36); Mean Corpuscular Hemoglobin 30.2 PG (26-34); Mean Corpuscular Volume 90.2 fL (80-100); Monocytes Percent Auto 7.3 % (3-14); Neutrophils Absolute Auto 9000 /uL (1500-7000); Neutrophils Percent Auto 79.1 % (50-75); Platelet Count 135 X10^3/uL (150-400); Red Cell Distribution Width 12.6 % (11.6-14.8); White Blood Cell Count 11.4 X10^3/uL (4.5-11.0)
--- NOTE | 2018-07-11 22:30 | P.HPOB_ITS ---
OB HPI Date/Time Date of admission: 07/11/18 Date Patient Seen: 07/11/18 Time Patient Seen: 22:21 History of Present Condition Chief complaint: eval of labor : 1 Para: 0 Estimated Date of Delivery: 07/12/18 Estimated Gestational Age (weeks): 39 Narrative: Basilio Rivera is a 28 year old female admitted in active labor History of Present care: good care, initiated at week # (7), number of visits (13) and pounds weight gain (37) Dating criteria: LMP confirmed by 1st trimester US Ultrasounds: normal mid trimester US Obstetrical complications: none Medical complications: none Preadmission Labs Blood type: O (+) positive -: Antibody screen: negative, GBS status: negative, HBsAG: negative, HIV: negative, HSV 1: positive, HSV 2: positive and RPR/VDLR: negative -: Chlamydia screen: not detected and Gonorrhea screen: not detected -: Rubella: immune HCAB: negative Quad screen: Abnormal (Increased risk of Down syndrome, amniocentesis is normal) 1 hr GTT: 72 Evaluation Evaluation Baseline heart rate: 150 Variability: Moderate (11-25) monitor accelerations: Present monitor decelerations: Absent Contraction Frequency (minutes): 5 Uterine Contraction Intensity: Moderate Category of Tracing: I Cervical dilation (cm): 6 Cervical effacement (%): 80 station: 0 Laboratory results: Laboratory Tests 07/11/18 07/11/18 20:40 20:40 WBC 11.4 H RBC 3.80 L Hgb 11.5 L Hct 34.2 L MCV 90.2 MCH 30.2 MCHC 33.5 RDW 12.6 Plt Count 135 L Neut % (Auto) 79.1 H Lymph % (Auto) 12.7 L [place] % (Auto) 7.3 Eos % (Auto) 0.2 L Baso % (Auto) 0.7 Neut # (Auto) 9000 H Blood Type O Positive Antibody Screen Negative PFSH Medical History Acne (Inactive ~2004) History of chickenpox (Inactive ~1992) Ovarian cyst (Inactive ~2006) Painful menstrual periods (Inactive ~2004) Surgical History Hx of breast implants, bilateral (Acute) Hx of breast augmentation (Inactive) Family History Grandfather Diabetes mellitus Heart disease Skin cancer Grandmother Mental health problem Stroke Grandfather Pancreatic cancer Grandmother Breast cancer Social History Smoking Status: Never smoker Meds Home Medications Medication Instructions Recorded Confirmed Type valacyclovir 500 mg tablet 500 mg PO DAILY #30 tab 06/15/18 07/11/18 Rx Double Electric Breast Pump #1 ea 07/09/18 07/11/18 Rx Allergies Allergy/AdvReac Type Severity Reaction Status Date / Time No Known Allergies Allergy Verified 07/11/18 19:42 Review of Systems Review of Systems No signs and symptoms or preeclampsia. Good movement. No leakage of fluid. All systems reviewed & are unremarkable except as noted in HPI and below Exam Vital Signs (past 8 hours): Blood pressure 120/73, pulse 82, temperature 98.1? Narrative Exam Narrative: HEENT exam within normal limits. Lungs are clear to auscultation and percussion. Heart is regular rate and rhythm S3-S4 or murmurs. Gravid abdomen. No signs of herpes. Extremities without edema and nontender. Objective Labs Result Diagrams: 07/11/18 20:40 Labs: Laboratory Results - last 24 hr 07/11/18 07/11/18 20:40 20:40 WBC 11.4 H RBC 3.80 L Hgb 11.5 L Hct 34.2 L MCV 90.2 MCH 30.2 MCHC 33.5 RDW 12.6 Plt Count 135 L Neut % (Auto) 79.1 H Lymph % (Auto) 12.7 L [place] % (Auto) 7.3 Eos % (Auto) 0.2 L Baso % (Auto) 0.7 Neut # (Auto) 9000 H Blood Type O Positive Antibody Screen Negative Assessment and Plan (1) 39 weeks gestation of : Current visit: Yes Status: Acute Plan: Plan: Term in active labor. Patient received epidural catheter for pain control. Will start Pitocin if necessary to augment labor. Anticipate vaginal delivery.
[2018-07-11] MEDS: OXYTOCIN PREMIX 30 UNIT/500 ML PLAST..BAG IV (23:06)
--- NOTE | 2018-07-12 00:52 | PM.OBPRVD ---
Delivery date: 07/12/18 Intrapartal events: None Delivery augmentation: pitocin Delivery monitor: external FHT and external uterine Route of delivery: Laceration description: Perineal - 2nd Degree Delivery repair: chromic (3-0) Estimated blood loss (mL): 100 Anesthesia type: Epidural Narrative: Patient arrived on Labor and delivery in active labor. She received an epidural catheter for pain control. heart tones category 1 throughout labor. Contractions decreased after epidural she was a ROM for clear fluid and Pitocin begun. She delivered spontaneously, over an intact perineum. The was placed on maternal abdomen after the cord stopped pulsating the cord was clamped and cord bloods were obtained. The placenta delivered spontaneously, with 3 vessels. There were no cervical or vaginal tears. Second-degree perineal tear was repaired with 3 0 chromic suture in the usual 2 layer fashion. Both and mother doing well. Baby weighed 8 lb 4 oz, 3762 g Baby 1: gender: Female Presentation: vertex position: Right Occiput Anterior Placenta delivery description: Spontaneous cord vessel description: Nuchal Cord score (1 min): 9 score (5 min): 9 Plan for aftercare: Routine post vaginal delivery
--- NOTE | 2018-07-12 00:55 | P.PCNOB_ITS ---
Delivery date: 07/12/18 Intrapartal events: None Delivery augmentation: pitocin Delivery monitor: external FHT and external uterine Route of delivery: Laceration description: Perineal - 2nd Degree Delivery repair: chromic (3-0) Estimated blood loss (mL): 100 Anesthesia type: Epidural Narrative: Patient arrived on Labor and delivery in active labor. She received an epidural catheter for pain control. heart tones category 1 throughout labor. Contractions decreased after epidural she was a ROM for clear fluid and Pitocin begun. She delivered spontaneously, over an intact perineum. The was placed on maternal abdomen after the cord stopped pulsating the cord was clamped and cord bloods were obtained. The placenta delivered spontaneously , with 3 vessels. There were no cervical or vaginal tears. Second-degree perineal tear was repaired with 3 0 chromic suture in the usual 2 layer fashion. Both and mother doing well. Baby weighed 8 lb 4 oz, 3762 g [place] Baby 1: gender: Female Presentation: vertex position: Right Occiput Anterior Placenta delivery description: Spontaneous cord vessel description: Nuchal Cord score (1 min): 9 score (5 min): 9 Plan for aftercare: Routine post vaginal delivery
[2018-07-12 05:15] VITALS: TEMP 37.8
[2018-07-12] MEDS: DERMOPLAST SPRAY 20% 60 ML 1 SPRAY TOP (05:15)
[2018-07-12] MEDS: IBUPROFEN 600 MG TABLET PO ×3 (05:15→18:12)
[2018-07-12] MEDS: DOCUSATE 250 MG CAPSULE PO (08:55)
[2018-07-12 14:54] LABS: Add Manual Diff / Slide Review NO; Basophils Percent Auto 0.2 % (0-2); Eosinophils Percent Auto 0.1 % (2-4); Hematocrit 29.2 % (36-46); Hemoglobin 9.9 g/dL (12.0-16.0); Lymphocytes Percent Auto 8.9 % (25-40); Mean Corpuscular HGB Conc 33.8 % (30-36); Mean Corpuscular Hemoglobin 30.7 PG (26-34); Mean Corpuscular Volume 90.8 fL (80-100); Monocytes Percent Auto 8.1 % (3-14); Neutrophils Absolute Auto 10400 /uL (1500-7000); Neutrophils Percent Auto 82.7 % (50-75); Platelet Count 125 X10^3/uL (150-400); Red Blood Cell Count 3.22 X10^6/uL (4.0-5.2); Red Cell Distribution Width 12.7 % (11.6-14.8); White Blood Cell Count 12.6 X10^3/uL (4.5-11.0)
--- NOTE | 2018-07-12 15:18 | PM.OBPN.1 ---
Subjective - OB Interval history: First day vaginal delivery Patient comments: pain well controlled baby status: doing well feeding status: exclusively breast feeding Date Patient Seen: 07/12/18 Time Patient Seen: 15:19 Exam Vital Signs (past 8 hours): Blood pressure 109/72, pulse of 110, temperature 99? Narrative Exam Narrative: Abdomen is soft, nontender. Uterus is firm, at U, nontender. Perineal repair intact. Mild vaginal bleeding. Extremities without edema and nontender. Objective Labs Result Diagrams: 07/12/18 14:30 Labs: Laboratory Results - last 24 hr 07/11/18 07/11/18 07/12/18 20:40 20:40 14:30 WBC 11.4 H 12.6 H RBC 3.80 L 3.22 L Hgb 11.5 L 9.9 L Hct 34.2 L 29.2 L MCV 90.2 90.8 MCH 30.2 30.7 MCHC 33.5 33.8 RDW 12.6 12.7 Plt Count 135 L 125 L Neut % (Auto) 79.1 H 82.7 H Lymph % (Auto) 12.7 L 8.9 L [place] % (Auto) 7.3 8.1 Eos % (Auto) 0.2 L 0.1 L Baso % (Auto) 0.7 0.2 Neut # (Auto) 9000 H 62449 H Blood Type O Positive Antibody Screen Negative Assessment & Plan (1) 39 weeks gestation of : Status: Acute Current Visit: Yes (2) Vaginal delivery: Problem details: Routine post vaginal delivery care Status: Acute Current Visit: Yes (3) Acute blood loss anemia: Problem details: Will treat with iron Status: Acute Current Visit: Yes Time Spent With Patient Total time spent is greater than 50% in coordination of care (as documented) at patient's floor/unit and/or counseling patient: less than 15 minutes
--- NOTE | 2018-07-12 15:22 | P.PNOB_ITS ---
Subjective - OB Interval history: First day vaginal delivery Patient comments: pain well controlled baby status: doing well feeding status: exclusively breast feeding Date Patient Seen: 07/12/18 Time Patient Seen: 15:19 Exam Vital Signs (past 8 hours): Blood pressure 109/72, pulse of 110, temperature 99? Narrative Exam Narrative: Abdomen is soft, nontender. Uterus is firm, at U, nontender. Perineal repair intact. Mild vaginal bleeding. Extremities without edema and nontender. Objective Labs Result Diagrams: 07/12/18 14:30 Labs: Laboratory Results - last 24 hr 07/11/18 07/11/18 07/12/18 20:40 20:40 14:30 WBC 11.4 H 12.6 H RBC 3.80 L 3.22 L Hgb 11.5 L 9.9 L Hct 34.2 L 29.2 L MCV 90.2 90.8 MCH 30.2 30.7 MCHC 33.5 33.8 RDW 12.6 12.7 Plt Count 135 L 125 L Neut % (Auto) 79.1 H 82.7 H Lymph % (Auto) 12.7 L 8.9 L [place] % (Auto) 7.3 8.1 Eos % (Auto) 0.2 L 0.1 L Baso % (Auto) 0.7 0.2 Neut # (Auto) 9000 H [id number] H Blood Type O Positive Antibody Screen Negative Assessment & Plan (1) 39 weeks gestation of : Status: Acute Current Visit: Yes (2) Vaginal delivery: Problem details: Routine post vaginal delivery care Status: Acute Current Visit: Yes (3) Acute blood loss anemia: Problem details: Will treat with iron Status: Acute Current Visit: Yes Time Spent With Patient Total time spent is greater than 50% in coordination of care (as documented) at patient's floor/unit and/or counseling patient: less than 15 minutes
[2018-07-13] MEDS: IBUPROFEN 600 MG TABLET PO ×2 (02:24→09:26)
[2018-07-13] MEDS: DOCUSATE 250 MG CAPSULE PO (09:39)
--- NOTE | 2018-07-13 13:08 | P.DS_ITS ---
Discharge Providers Date of admission: 07/11/18 18:47 Primary care physician: Zara Casarez PA-C Consults: 07/11/18 19:34 Consult to Anesthesiology Urgent Comment: Consulting Provider: Anesthesiologist Reason for consultation: Epidural Has provider been notified: No 07/12/18 04:08 Consult to Hand Hose Cutter Routine Comment: Discharge provider: Esperanza Benitez MD Discharge Date: 07/13/18 Summary Date Patient Seen: 07/13/18 Time Patient Seen: 13:02 Hospital Course: Patient arrived on Labor and delivery in active labor. She received an epidural catheter for pain control. She delivered spontaneously a viable female weighing 8 lb 4 oz. She had repair of a second-degree perineal tear. Both infant and mother doing well. Patient denies any signs or symptoms of preeclampsia she is urinating and ambulating well. She has had a bowel movement. Mild bleeding. Blood pressure 122/79, pulse 96, temperature 98.4?. Abdomen is soft, nontender. Uterus is firm, at U, nontender. Repair is intact. Mild lochia. Extremities without edema and nontender. Blood type is O positive and she is rubella immune Peripartum Data Infant Delivery Method: Natural Vaginal Laceration description: Perineal - 2nd Degree Procedures: Epidural catheter, Pitocin augmentation of labor, vaginal delivery, repair of perineal tear complications: none Discharge Diagnosis (1) Vaginal delivery: Status: Acute Problem Details: Routine post vaginal delivery care (2) Acute blood loss anemia: Status: Acute Problem Details: Will treat with iron (3) 39 weeks gestation of : Status: Acute Status at Discharge Functional status at discharge: independent ambulation Overall status at discharge: patient is progressing back to baseline Time Spent with Patient Total time spent providing and/or coordinating discharge services: Less than 30 minutes Objective Labs Result Diagrams: 07/12/18 14:30 Labs: Laboratory Results - last 24 hr 07/12/18 14:30 WBC 12.6 H RBC 3.22 L Hgb 9.9 L Hct 29.2 L MCV 90.8 MCH 30.7 MCHC 33.8 RDW 12.7 Plt Count 125 L Neut % (Auto) 82.7 H Lymph % (Auto) 8.9 L [place] % (Auto) 8.1 Eos % (Auto) 0.1 L Baso % (Auto) 0.2 Neut # (Auto) 27800 H Discharge Plan Discharge Plan Patient Disposition: Home Discharge Med Rec/Prescriptions Prescriptions: New ibuprofen 600 mg Tablet 600 mg PO Q6HR PRN (Reason: Pain, Mild (1-3)) Qty: 30 RF: 0 docusate sodium 250 mg Capsule 250 mg PO DAILY Qty: 20 RF: 0 ferrous gluconate 324 mg (37.5 mg iron) tablet 324 mg PO BID Qty: 60 RF: 0 Discontinued valacyclovir [Valtrex] 500 mg tablet 500 mg PO DAILY Qty: 30 RF: 1 No Action Double Electric Breast Pump Qty: 1 RF: 0 Follow up/Referrals: Esperanza Benitez MD [Physician] - 1 Month Zara Casarez PA-C [Primary Care Provider] - Provider Discharge Instructions Diet: Regular Activity: Nothing in vagina for 4 weeks Skin/Wound/Dressing Care Report to your healthcare provider any signs of infection, such as:: chills, fever and increased pain Discharge Data Primary Care Provider: Zara Casarez Attending Provider: Esperanza Benitez Admit Date/Time: 07/11/18 18:47
[2018-07-13 13:55] VITALS: BP 122/79; PULSE 96; RESP 14; TEMP 36.9
== END 2018-07-13 15:25 | disposition home or self-care (01) | DRG 806 ==
PROVIDERS: Admitting Provider Specialist; PCP Physician Assistant; Visit Provider Specialist
DX: O70.1 Second degree perineal laceration during delivery (principal); D62 Acute posthemorrhagic anemia; Z37.0 Single live birth; Z3A.39 39 weeks gestation of pregnancy
CPT/HCPCS: 01967; 59050; 59400; 85025; 86850; 86900; 86901; G0379; J2590

== ENCOUNTER 2018-08-28 23:18 | Emergency (ER) | payer OTHER, SELFPAY ==
[2018-08-28 23:28] VITALS: BP 117/83; PULSE 90; RESP 18; TEMP 36.6; O2SAT 98; BMI 21.4
--- NOTE | 2018-08-28 23:39 | PC.NURSE ---
Assit Dr with rectal exam
--- NOTE | 2018-08-29 00:04 | PC.NURSE ---
Exam of rectum deferred to and female [facility].
--- NOTE | 2018-08-29 00:30 | ED.FEMALEGU ---
HPI - Female Genitourinary General Chief complaint: Urogenital-Female Stated complaint: ANAL ITCHING, MOM SAW WORMS Time Seen by Provider: 08/28/18 23:20 Source: patient Mode of arrival: ambulatory Limitations: no limitations History of Present Illness HPI Narrative: 28-year-old female, nonsmoker presents with a chief complaint of significant anal itching over the course of the day. Her mother took a look and saw a little white worms climbing around. She has had no history of the same and nothing in her stool. She denies any fever chills. She is otherwise well and free of complaint. Location: other Severity: moderate Quality: Itching Duration: constant Relieving factors: none Related Data Previous Rx's Medication Instructions Recorded Double Electric Breast Pump #1 ea 07/09/18 docusate sodium 250 mg PO DAILY #20 cap 07/13/18 ferrous gluconate 324 mg PO BID #60 tab 07/13/18 ibuprofen 600 mg PO Q6HR PRN #30 tab 07/13/18 hydrocodone 5 mg-acetaminophen 325 2 tab PO Q4-6H PRN #20 tab 07/16/18 mg tablet sertraline 50 mg tablet 50 mg PO DAILY #30 tab 08/01/18 Allergies Allergy/AdvReac Type Severity Reaction Status Date / Time No Known Allergies Allergy Verified 07/11/18 19:42 Review of Systems Constitutional Denies chills, Denies fever(s), Denies lethargy and Denies weakness Eyes Denies change in vision, Denies eye discharge, Denies irritation and Denies loss of vision ENT Ears, Nose, Mouth, and Throat: Denies change in voice, Denies neck pain and Denies sore throat Cardiovascular Denies chest pain, Denies irregular heart rhythm, Denies lightheadedness, Denies palpitations, Denies dyspnea, Denies dyspnea on exertion and Denies orthopnea Respiratory Denies cough, Denies dyspnea, Denies dyspnea on exertion and Denies wheezing Gastrointestinal Gastrointestinal: Denies abdominal pain, Denies change in bowel habits, Denies diarrhea, Denies nausea and Denies vomiting Genitourinary Denies hematuria, Denies flank pain, Denies urinary incontinence and Denies urinary urgency Comments: rectal itching Musculoskeletal Denies neck pain Integumentary/Breasts Denies pruritus, Denies erythema, Denies rash and Denies wounds Neurologic Denies confusion, Denies loss of vision and Denies weakness Psychiatric Denies anxiety, Denies confusion, Denies depression, Denies homicidal ideation and Denies suicidal ideation Endocrine Denies palpitations Hematologic/Lymphatic Denies easy bruising Allergic/Immunologic Denies wheezing PFSH Medical History Acne (Inactive ~2004) History of chickenpox (Inactive ~1992) Ovarian cyst (Inactive ~2006) Painful menstrual periods (Inactive ~2004) Surgical History Hx of breast implants, bilateral (Acute) Hx of breast augmentation (Inactive) Family History Grandfather Diabetes mellitus Heart disease Skin cancer Grandmother Mental health problem Stroke Grandfather Pancreatic cancer Grandmother Breast cancer Social History Smoking Status: Never smoker Family History Grandfather Diabetes mellitus Heart disease Skin cancer Grandmother Mental health problem Stroke Grandfather Pancreatic cancer Grandmother Breast cancer Social History Smoking Status: Never smoker Exam Narrative Exam Narrative: GEN: AOx3 and in mild distress EYES: Pupils are equal, round, and reactive to light and accommodation. Extraoccular muscles are intact bilaterally. There is no subconjunctival hemorrhage or exudate. CHEST: Lungs are clear to auscultation bilaterally and free of wheezes, rales, or rhonchi. Heart rate is regular rhythm, there are no murmurs, clicks, rubs, or gallops. There is no chest wall tenderness. ABD: Abdomen is soft and nontender. There is no guarding or rebound. Bowel sounds are normal in all 4 quadrants. There is no mass or organomegaly. RECTAL: Obvious pinworm infection noted, no hemorrhoids or rectal fissure noted. This exam performed with a female nursing production control scheduler at the bedside and the patient's verbal permission EXT: Full painless ROM of all extremities with no loss of sensation or strength. SKIN: Warm, pink, and dry. No erythema or rash Initial Vital Signs Initial Vital Signs: Vital Signs Temperature 97.9 F 08/28/18 23:28 Pulse Rate 90 08/28/18 23:28 Respiratory Rate 18 08/28/18 23:28 Blood Pressure 117/83 08/28/18 23:28 Pulse Oximetry 98 08/28/18 23:28 Course Vital Signs - 8 hr 08/28/18 23:28 Temperature 97.9 F Pulse Rate 90 Respiratory Rate 18 Blood Pressure 117/83 Pulse Oximetry 98 Discharge Plan Departure Patient Disposition: Home Clinical Impression: Pinworms Instructions: DI for Pinworm Activity Restrictions/Additional Instructions: *You have been diagnosed with [ pinworms ] *What to do: *Take medications as directed: over the counter Pyrantel Pamoate ([facility] Pinworm Medicine) *Follow up with your primary care provider in 2-3 days, call for an appointment. Let them know you were seen in the Emergency Department and that we ask that you be seen in follow up *Return to ER if you should have any new, worsening or concerning symptoms Prescriptions: No Action Double Electric Breast Pump Qty: 1 RF: 0 hydrocodone-acetaminophen [Lorcet (hydrocodone)] 5-325 mg tablet 2 tab PO Q4-6H PRN (Reason: pain (scale score 7-10)) Qty: 20 RF: 0 sertraline [Zoloft] 50 mg tablet 50 mg PO DAILY Qty: 30 RF: 3 ibuprofen 600 mg Tablet 600 mg PO Q6HR PRN (Reason: Pain, Mild (1-3)) Qty: 30 RF: 0 docusate sodium 250 mg Capsule 250 mg PO DAILY Qty: 20 RF: 0 ferrous gluconate 324 mg (37.5 mg iron) tablet 324 mg PO BID Qty: 60 RF: 0 Referrals: Zara Casarez PA-C [Primary Care Provider] -
== END 2018-08-28 23:55 | disposition home or self-care (01) ==
PROVIDERS: Emergency Provider Emergency Medicine; PCP Physician Assistant
DX: B80 Enterobiasis (principal)
CPT/HCPCS: 99282

== ENCOUNTER → 2019-05-22 08:56 | Outpatient (CLI) | payer OTHER, SELFPAY ==
[2019-05-22 09:26] LABS: Influenza A and B by PCR Rapid Negative (Negative)
== END ==
PROVIDERS: PCP Internal Medicine; Visit Provider Physician Assistant
DX: R51 Headache (principal)
CPT/HCPCS: 87502